=== PATIENT | female | born 1975 | race American Indian/Alaskan Native ===

== ENCOUNTER 2021-10-13 10:13 | Emergency (ER) | payer SELFPAY ==
--- NOTE | 2021-10-13 11:11 | XRay Report ---
. XR foot 3+V LT INDICATION: foot injury. COMPARISON: None available. FINDINGS: There is a mildly displaced oblique fracture of the fifth metatarsal shaft width medial displacement of the distal fracture fragment. There is no other appreciable fracture. Signer Name: Jamison Arteaga MD Signed: 10/13/2021 11:06 AM Workstation Name: [id number]
--- NOTE | 2021-10-13 11:53 | Emergency Department Report ---
ED Lower Extremity HPI - General Chief Complaint: Extremity Injury, Lower Stated Complaint: LT FOOT INJURY Time Seen by Provider: 10/13/21 11:41 Source: patient Mode of arrival: Ambulatory Limitations: No Limitations - History of Present Illness Initial Comments: 45-year-old black female with no past medical history presents to the emergency department for evaluation of left foot pain. She states that earlier this morning she accidentally stepped off the side of a curb and heard her foot pop. She states that she has some pain and later some swelling so she decided to come here for further evaluation. She states that pain is 4 out of 10 and worse with any weight bearing. Complaint: foot injury -: Sudden, hour(s) Injury: Foot: Right Type of Injury: other (Stepped off the side of a curve) Place: home Severity: mild Severity scale (0 -10): 4 Worsens With: weight bearing Context: walking Associated Symptoms: snap/pop sensation, swelling, unable to bear weight. denies: numbness, tingling - Related Data Previous Rx's Medication Instructions Recorded Last Taken Type Acetaminophen/Codeine [Tylenol 1 tab PO Q6H PRN #12 tab 10/13/21 Unknown Rx /Codeine # 3 tab] Naproxen [Naprosyn] 500 mg PO BID #14 tab 10/13/21 Unknown Rx Allergies Allergy/AdvReac Type Severity Reaction Status Date / Time No Known Allergies Allergy Verified 10/13/21 10:33 ED Review of Systems ROS: Stated complaint: LT FOOT INJURY Other details as noted in HPI Comment: All other systems reviewed and negative Constitutional: denies: chills, fever Eyes: denies: vision change Respiratory: denies: cough, shortness of breath Cardiovascular: denies: chest pain, palpitations, dyspnea on exertion, orthopnea, edema, syncope, paroxysmal nocturnal dyspnea Gastrointestinal: denies: abdominal pain, nausea, vomiting Genitourinary: denies: urgency, dysuria Musculoskeletal: denies: back pain Skin: denies: rash, lesions Neurological: denies: headache, weakness ED Past Medical Hx - Past Medical History Additional medical history: TIA - Medications Home Medications: Home Medications Medication Instructions Recorded Confirmed Last Taken Type Acetaminophen/Codeine [Tylenol 1 tab PO Q6H PRN #12 tab 10/13/21 Unknown Rx /Codeine # 3 tab] Naproxen [Naprosyn] 500 mg PO BID #14 tab 10/13/21 Unknown Rx ED Physical Exam - General Limitations: No Limitations General appearance: alert, in no apparent distress - Head Head exam: Present: atraumatic, normocephalic - Eye Eye exam: Present: normal appearance. Absent: conjunctival injection - Neck Neck exam: Present: normal inspection - Respiratory Respiratory exam: Absent: respiratory distress - Cardiovascular Cardiovascular Exam: Present: regular rate - GI/Abdominal GI/Abdominal exam: Absent: distended - Expanded Lower Extremity Exam Left Hip exam: Present: normal inspection Upper Leg exam: Present: normal inspection Knee exam: Present: normal inspection Lower Leg exam: Present: normal inspection Ankle exam: Present: normal inspection Foot/Toe exam: Present: tenderness, swelling, tenderness at base of 5th metatarsal. Absent: normal inspection, full ROM, abrasion, laceration, ecchymosis, deformity, crepidus, dislocation, erythema, nail avulsion, subungual hematoma Neuro vascular tendon exam: Present: no vascular compromise. Absent: pulse deficit, abnormal cap refill, motor deficit, sensory deficit, extremity cold to touch, pallor Gait: Positive: observed and limited by pain - Back Exam Back exam: Present: normal inspection. Absent: vertebral tenderness - Neurological Exam Neurological exam: Present: alert, oriented X3. Absent: normal gait - Psychiatric Psychiatric exam: Present: normal affect, normal mood - Skin Skin exam: Present: warm, dry, intact, normal color ED Course Vital Signs 10/13/21 10/13/21 10:27 12:13 Temperature 98.5 F 98.0 F Pulse Rate 67 76 Respiratory 16 20 Rate Blood Pressure 128/92 130/85 [Left] O2 Sat by Pulse 100 99 Oximetry - Orthopedic Splinting/Casting Injury #1 Side: left Lower Extremity Injury Location: foot Lower Extremity Immobilizer: posterior splint (Short leg, OCL) Other Orthopedic Equipment: crutches Additional Comments: Patient tolerated well. CMS intact after application. ED Lower Extremity MDM - Radiology Data Radiology results: report reviewed, image reviewed interpreted by me: Left foot x-ray: FINDINGS: There is a mildly displaced oblique fracture of the fifth metatarsal shaft width medial displacement of the distal fracture fragment. There is no other appreciable fracture. - Medical Decision Making 45-year-old black female with no past medical history presents to the emergency department for evaluation of left foot pain. She states that earlier this morning she accidentally stepped off the side of a curb and heard her foot pop. She states that she has some pain and later some swelling so she decided to come here for further evaluation. She states that pain is 4 out of 10 and worse with any weight bearing. Left foot x-ray positive for fracture to fifth metatarsal. Patient to be placed in short leg splint, given crutches, and advised to follow-up with orthopedics in the next few days. She states that she already has an orthopedic doctor that she sees and she will see him. Patient will be discharged home with medication for pain and swelling and advised to take medication as prescribed. She is a dvised return to the emergency department for any concerning symptoms. She verbalized understanding of and agreement with plan of care. Critical care attestation.: If time is entered above; I have spent that time in minutes in the direct care of this critically ill patient, excluding procedure time. ED Disposition Clinical Impression: Fracture of metatarsal of left foot, closed Qualifiers: Encounter type: initial encounter Metatarsal bone: fifth Fracture alignment: displaced Qualified Code(s): S92.352A - Displaced fracture of fifth metatarsal bone, left foot, initial encounter for closed fracture Disposition: 01 HOME / SELF CARE / HOMELESS Is pt being admited?: No Does the pt Need Aspirin: No Condition: Stable Instructions: Cast or Splint Care, Adult, [id number], Metatarsal Fracture Rehab-Sports[facility], Metatarsal Fracture Additional Instructions: Take medications as prescribed. Follow-up with orthopedics as planned. Return to the emergency department as needed. Prescriptions: Naproxen [Naprosyn] 500 mg PO BID #14 tab Acetaminophen/Codeine [Tylenol /Codeine # 3 tab] 1 tab PO Q6H PRN #12 tab PRN Reason: Pain , Severe (7-10) Referrals: [facility] [Provider Group] - 3-5 Days Forms: Work/School Release Form(ED) Time of Disposition: 12:04
[2021-10-13] MEDS ORDERED: KETOROLAC 10 MG TAB PO ONE (12:20)
[2021-10-13] MEDS ORDERED: oxyCODONE /ACETAMINOPHEN 5-325MG TAB PO ONE (12:21)
[2021-10-13 12:22] VITALS: BP 130/85
== END 2021-10-13 13:06 | disposition home or self-care (01) ==
LOC: ED 10:13
DX: S92.302A Fracture of unspecified metatarsal bone(s), left foot, initial encounter for closed fracture (principal); X58.XXXA Exposure to other specified factors, initial encounter; Y93.89 Activity, other specified; Y92.89 Other specified places as the place of occurrence of the external cause; Y99.8 Other external cause status
CPT/HCPCS: 99283